=== PATIENT | male | born 1975 | race Two or more races ===

== ENCOUNTER 2017-07-23 19:56 | Emergency (ER) | payer MEDICAID ==
[~2017-07-23] VITALS: Ht 180.3 cm; Wt 83.9 kg
[2017-07-23] MEDS ORDERED: IBUPROFEN600 MG ORAL (20:55)
[2017-07-23] MEDS ORDERED: KEFLEX500 MG ORAL (20:55)
[2017-07-23 21:00] VITALS: BP 115/71
--- NOTE | 2017-07-25 08:20 | Emergency Room Report ---
History of Present Illness General Chief Complaint: Lower Extremity Injury Source: Patient Present Illness HPI Patient presents with discomfort to the lateral right small toe He reports that he has had discomfort over the past several days He had decreased wearing shoes and putting pressure which he felt improved his symptoms however after wearing shoes again he feels discomfort Denies any trauma or fall Denies any other pain to the dorsal foot denies any history of diabetes or other medical conditions pain is worse with touch Allergies: Coded Allergies: No Known Allergies (Unverified , 07/23/17) Patient History Past Medical History: see triage record Pertinent Family History: none Reviewed Nursing Documentation: PMH: Agreed, PSxH: Agreed Nursing Documentation-PMH Past Medical History: No Stated History Review of Systems All Other Systems: negative except mentioned in HPI Physical Exam Vital Signs Date Time Temp Pulse Resp B/P (MAP) Pulse Ox O2 Delivery O2 Flow Rate FiO2 07/23/17 20:04 97.9 66 18 115/71 98 Room Air Sp02 EP Interpretation: reviewed, normal General Appearance: well appearing, no apparent distress Head: normocephalic, atraumatic Eyes: bilateral eye PERRL, bilateral eye EOMI ENT: normal pharynx Neck: full range of motion, supple Respiratory: lungs clear Musculoskeletal: other - Patient shows signs of a callus on the right lateral small toe, mild erythema, no obvious ecchymosis, range of motion intact Neurologic: alert, oriented x3, track repair worker III-XII nml as tested, motor strength/tone normal Skin: other - as above Lymphatic: no adenopathy Medical Decision Making Diagnostic Impression: Primary Impression: cellulitis ER Course Patient appears to have a callus that has become secondarily infected No obvious trauma to consider fracture or emergency imaging Patient will require further podiatry followup and is stable for close reevaluation Last Vital Signs Date Time Temp Pulse Resp B/P (MAP) Pulse Ox O2 Delivery O2 Flow Rate FiO2 07/23/17 21:00 18 115/71 98 07/23/17 20:04 97.9 66 Room Air Status: unchanged Disposition: HOME, SELF-CARE Condition: Stable Scripts Ibuprofen* (MOTRIN*) 600 Mg Tablet 600 MG ORAL Q8H Y for For Pain, #20 TAB 0 Refills Prov: KEVIN DEVLIN DZana 07/23/17 Cephalexin* (KEFLEX*) 500 Mg Capsule 500 MG ORAL Q6H, #28 CAP 0 Refills Prov: KEVIN DEVLIN D.O. 07/23/17 Referrals: OTHER,REFERRING (PCP) Patient Instructions: Cellulitis, [id number] Additional Instructions: Patient is provided with the discharge instructions notified to follow up with primary doctor in the next 2-3 days otherwise return to the er with any worsening symptoms. Please note that this report is being documented using [employer] technology. This can lead to erroneous entry secondary to incorrect interpretation by the dictating instrument. KEVIN DEVLIN D.O. Jul 25, 2017 08:20
== END 2017-07-23 21:30 | disposition home or self-care (01) ==
LOC: EMR 21:24
DX: L03.031 Cellulitis of right toe (principal); L84 Corns and callosities
CPT/HCPCS: 99284

== ENCOUNTER 2017-09-03 20:28 | Emergency (ER) | payer MEDICAID ==
[~2017-09-03] VITALS: Ht 182.9 cm; Wt 83.9 kg
[~2017-09-03 20:28] MED LIST: IBUPROFEN600 MG ORAL; KEFLEX500 MG ORAL
[2017-09-03] MEDS ORDERED: PERCOCET 10-321 EACH ORAL (20:38)
[2017-09-03 20:45] VITALS: BP 134/75
[2017-09-03] MEDS ORDERED: BACTRIM DS TAB1 EAC1 ORAL (21:15)
[2017-09-03] MEDS ORDERED: MUPIROCIN22 GM TOPIC (21:15)
[2017-09-03] MEDS ORDERED: IBUPROFEN600 MG ORAL (21:15)
--- NOTE | 2017-09-03 21:15 | Emergency Room Report ---
History of Present Illness General Chief Complaint: General Complaint Source: Patient Present Illness HPI This is a 41-year-old male with no past medical history. He presents with chief complaint of left upper lip pain ongoing for 2 days. Swollen. Pain is 10 out of 10. Worse with palpation. Starting yesterday. Worse today. No drainage. Denies any other complaint. Allergies: Coded Allergies: No Known Allergies (Unverified , 07/23/17) Patient History Past Medical History: see triage record, old chart reviewed Past Surgical History: none Pertinent Family History: none Social History: Denies: smoking Immunizations: other Reviewed Nursing Documentation: PMH: Agreed, PSxH: Agreed Nursing Documentation-PMH Past Medical History: No Stated History Review of Systems Eye: Denies: eye pain, blurred vision ENT: Denies: ear pain, nose congestion, throat swelling Respiratory: Denies: cough, shortness of breath Cardiovascular: Denies: chest pain, palpitations Gastrointestinal: Denies: abdominal pain, diarrhea, nausea, vomiting Musculoskeletal: Denies: back pain, joint pain Skin: Denies: rash Neurological: Denies: headache, numbness Endocrine: Denies: increased thirst, increased urine Hematologic/Lymphatic: Denies: easy bruising All Other Systems: negative except mentioned in HPI Physical Exam Vital Signs Date Time Temp Pulse Resp B/P (MAP) Pulse Ox O2 Delivery O2 Flow Rate FiO2 09/03/17 20:35 98.6 76 16 134/75 97 Room Air vitals normal Sp02 EP Interpretation: reviewed, normal General Appearance: well appearing, no apparent distress, alert Head: normocephalic, atraumatic Eyes: bilateral eye PERRL, bilateral eye EOMI ENT: hearing grossly normal, normal pharynx, other - Left nares: There is a small 1-2 mm raise red bump. Tender to palpation. Some mild edema to the left middle lip. No fluctuant area. No dental abscess. Neck: full range of motion, supple, no meningismus Respiratory: chest non-tender, lungs clear, normal breath sounds Cardiovascular #1: regular rate, rhythm, no murmur Gastrointestinal: normal bowel sounds, non tender, no mass, no organomegaly, no bruit, non-distended Musculoskeletal: back normal, gait/station normal, normal range of motion Psychiatric: mood/affect normal Skin: warm/dry Medical Decision Making Diagnostic Impression: Primary Impression: Nasal abscess ER Course Is with a small abscess in his nose. I don't see any fluctuant area to I&D. This is only one to 2 mm. We'll treat symptomatically with antibiotics and antibiotic ointment. No deep infection. No dental abscess. Last Vital Signs Date Time Temp Pulse Resp B/P (MAP) Pulse Ox O2 Delivery O2 Flow Rate FiO2 09/03/17 20:35 98.6 76 16 134/75 97 Room Air Status: unchanged Disposition: HOME, SELF-CARE Condition: Stable Scripts Ibuprofen* (MOTRIN*) 600 Mg Tablet 600 MG ORAL THREE TIMES A DAY, #30 TAB 0 Refills Prov: VICKY EDGAR M.D. 09/03/17 Mupirocin* (MUPIROCIN*) 22 Gm Oint...g. 1 APPLIC TOPIC THREE TIMES A DAY, #22 GM Prov: VICKY EDGAR M.D. 09/03/17 Trimethoprim/Sulfamethoxazole 160/800* (BACTRIM DS TABLET*) 1 Each Tablet 1 TAB ORAL Q12H, #14 TAB 0 Refills Prov: VICKY EDGAR M.D. 09/03/17 Additional Instructions: Followup with your Dr. in 2 to 3 days for recheck. Return if symptom worsen. Clean with Hydrogen peroxide. VICKY EDGAR M.D. Sep 03, 2017 21:15
[2017-09-03 21:20] VITALS: BP 134/75
== END 2017-09-03 21:20 | disposition home or self-care (01) ==
LOC: EMR 21:05
DX: J34.0 Abscess, furuncle and carbuncle of nose (principal)
CPT/HCPCS: 99284

== ENCOUNTER 2017-09-06 04:00 | Inpatient (IN) | payer MEDICAID ==
[~2017-09-06] VITALS: Ht 185.4 cm; Wt 86.2 kg
[~2017-09-06 04:00] MED LIST changes: +BACTRIM DS TAB1 EAC1 ORAL; +MUPIROCIN22 GM TOPIC; +PERCOCET 10-321 EACH ORAL
[2017-09-06] MEDS ORDERED: Ketorolac 30mg Inj IV ONE (04:30)
[2017-09-06] MEDS ORDERED: Vancomycin 1 GM in NS 275 ML IV ONE (04:30)
[2017-09-06] MEDS ORDERED: Lidocaine 1% 10mg/ml/Epi 0.005mg/ml 30ml vial INJ ONE (04:30)
[2017-09-06] MEDS ORDERED: Vancomycin 1gm inj IVPB ONE (04:50)
[2017-09-06 05:06] VITALS: BP 136/75
[2017-09-06 05:14] LABS: BASOPHILS % (AUTO) 0.5 % (0.0-2.0); EOSINOPHILS % (AUTO) 0.8 % (0.0-3.0); HEMATOCRIT 40.5 % (42.0-52.0); HEMOGLOBIN 14.5 G/DL (14.2-18.0); LYMPHOCYTES % (AUTO) 14.2 % (20.0-45.0); MEAN CORPUSCULAR VOLUME 85 FL (80-99); MONOCYTES % (AUTO) 9.6 % (1.0-10.0); NEUTROPHILS % (AUTO) 74.9 % (45.0-75.0); PLATELET COUNT 238 K/UL (150-450); RED BLOOD COUNT 4.74 M/UL (4.70-6.10); RED CELL DISTRIBUTION WIDTH 10.2 % (11.6-14.8); WHITE BLOOD COUNT 11.6 K/UL (4.8-10.8)
[2017-09-06 05:34] LABS: ANION GAP 9 mmol/L (5-15); BLOOD UREA NITROGEN 11 mg/dL (7-18); CALCIUM 8.7 MG/DL (8.5-10.1); CARBON DIOXIDE 26 MMOL/L (21-32); CHLORIDE 102 MMOL/L (98-107); CREATININE 1.2 MG/DL (0.55-1.30); POTASSIUM 3.7 MMOL/L (3.5-5.1); SODIUM 137 MMOL/L (136-145)
[2017-09-06 05:50] LABS: ALANINE AMINOTRANSFERASE 97 U/L (12-78); ALBUMIN 3.6 G/DL (3.4-5.0); ALBUMIN/GLOBULIN RATIO 0.9 (1.0-2.7); ALKALINE PHOSPHATASE 118 U/L (46-116); ASPARTATE AMINO TRANSFERASE 67 U/L (15-37); BILIRUBIN,TOTAL 1.4 MG/DL (0.2-1.0)
[2017-09-06 06:08] LABS: BILIRUBIN,DIRECT 0.3 MG/DL (0.0-0.3)
--- NOTE | 2017-09-06 06:16 | Emergency Room Report ---
History of Present Illness General Chief Complaint: Pain Source: Patient (Sulaiman Diaz M.D.) Present Illness HPI Patient re-presents with nasal and upper lip pain. This began 09/01. He was seen 09/03 and was diagnosed with a nasal abscess. He was started on Bactrim and given ibuprofen. He takes oxycontin and percocet for back pain and has used these medicines to help control the pain. It has worsened and the swelling has continued to worsen. The pain is severe and he has trouble eating due to the pain. Some chills. No headache. No fever. No discharge. This began as a pimple on the L side of his nose (inside). He had been scratching the bridge of his nose before. He was treated in June for cellulitis of his foot with Keflex. He states tetanus is UTD. No drug use (snorting). Also denies risk for HIV. No NVD, dysuria, other rashes, chest pain, dyspnea. Chronic back pain. (Sulaiman Diaz M.D.) Allergies: Coded Allergies: No Known Allergies (Unverified , 07/23/17) Patient History Past Medical History: see triage record Social History: Denies: smoking, drug use Social History Narrative in [place], based in [place] Reviewed Nursing Documentation: PMH: Agreed, PSxH: Agreed (Sulaiman Diaz M.D.) Nursing Documentation-PMH Past Medical History: No Stated History (Sulaiman Diaz M.D.) Review of Systems All Other Systems: negative except mentioned in HPI (Sulaiman Diaz M.D.) Physical Exam Vital Signs Date Time Temp Pulse Resp B/P (MAP) Pulse Ox O2 Delivery O2 Flow Rate FiO2 09/06/17 04:07 98.4 94 18 136/75 97 Sp02 EP Interpretation: reviewed, normal General Appearance: no apparent distress, GCS 15, mild distress Head: normocephalic Eyes: bilateral eye normal inspection, bilateral eye PERRL ENT: moist mucus membranes, other - septal swelling with abscess upper lip midline Neck: supple Respiratory: lungs clear, normal breath sounds Cardiovascular #1: regular rate, rhythm Cardiovascular #2: 2+ radial (R) Gastrointestinal: normal inspection, normal bowel sounds, non tender, no mass, non-distended Musculoskeletal: back normal, gait/station normal, normal range of motion Neurologic: alert, oriented x3, grossly normal Psychiatric: anxious - and in pain Skin: normal inspection, warm/dry, other - see ENT (Sulaiman Diaz M.D.) Medical Decision Making Diagnostic Impression: Primary Impression: Nasal abscess Additional Impression: Antibiotic failure ER Course Patient presents with worsening nasal abscess. In facial triangle. Needs eval with labs and will need surgical intervention with I and D. Will give analgesia and also vancomycin. Labs with elevated WBC. CT with 1X0.8 cm abscess midline upper lip. STS and edema. + cervical adenopathy. Patient declines further pain medicine. Work to admit. Presented to Dr. Berman. Unable to get ENT. Presented to [facility]. Awaiting MD discussion. Signed out to Dr. Alfaro. Laboratory Tests Test 09/06/17 05:10 White Blood Count 11.6 K/UL (4.8-10.8) H Red Blood Count 4.74 M/UL (4.70-6.10) Hemoglobin 14.5 G/DL (14.2-18.0) Hematocrit 40.5 % (42.0-52.0) L Mean Corpuscular Volume 85 FL (80-99) Mean Corpuscular Hemoglobin 30.6 PG (27.0-31.0) Mean Corpuscular Hemoglobin Concent 35.9 G/DL (32.0-36.0) Red Cell Distribution Width 10.2 % (11.6-14.8) L Platelet Count 238 K/UL (150-450) Mean Platelet Volume 7.5 FL (6.5-10.1) Neutrophils (%) (Auto) 74.9 % (45.0-75.0) Lymphocytes (%) (Auto) 14.2 % (20.0-45.0) L Monocytes (%) (Auto) 9.6 % (1.0-10.0) Eosinophils (%) (Auto) 0.8 % (0.0-3.0) Basophils (%) (Auto) 0.5 % (0.0-2.0) Sodium Level 137 MMOL/L (136-145) Potassium Level 3.7 MMOL/L (3.5-5.1) Chloride Level 102 MMOL/L (98-107) Carbon Dioxide Level 26 MMOL/L (21-32) Anion Gap 9 mmol/L (5-15) Blood Urea Nitrogen 11 mg/dL (7-18) Creatinine 1.2 MG/DL (0.55-1.30) Estimate Glomerular Filtration Rate > 60 mL/min (>60) Glucose Level 106 MG/DL (74-106) Lactic Acid Level 0.70 mmol/L (0.66-2.22) Calcium Level 8.7 MG/DL (8.5-10.1) Total Bilirubin 1.4 MG/DL (0.2-1.0) H Direct Bilirubin 0.3 MG/DL (0.0-0.3) Aspartate Amino Transferase (AST) 67 U/L (15-37) H Alanine Aminotransferase (ALT) 97 U/L (12-78) H Alkaline Phosphatase 118 U/L (46-116) H Total Protein 7.5 G/DL (6.4-8.2) Albumin 3.6 G/DL (3.4-5.0) Globulin 3.9 g/dL Albumin/Globulin Ratio 0.9 (1.0-2.7) L (Sulaiman Diaz M.D.) ER Course I received signout from Dr. Diaz 41-year-old male, nasal abscess, failed outpatient treatment Received antibiotics Patient still in pain, more pain medication given by me Patient is pending transfer to outside facility for higher level of care with ENT specialty Patient unable to be placed to outside facility due to lack of beds, no ENT specialist accepting patient at this time Signed out to Dr. Cardozo 41 yo M with nasal abscess -pending xfer (Kaci Alfaro M.D.) ER Course The patient endorsed to ne by Dr. Alfaro. I verbally consented the patient for needle aspiration and he agreed. I attempted aspiration with an 18-gauge needle. There is minimal if any drainage. The patient was discussed with Dr. Carson Berman for inpatient management. Dr. Claduine Bourne facial plastics agreed to see the patient for abscess. (Brad Cardozo) CT/MRI/US Diagnostic Results CT/MRI/US Diagnostic Results : Imaging Test Ordered: CT maxilofacial Impression midline nasal abscess (Sulaiman Diaz M.D.) Status: improved (Sulaiman Diaz M.D.) Status: unchanged (Brad Cardozo) Disposition: ADMITTED INPATIENT Condition: Serious Referrals: NOT CHOSEN IPA/,REFERRING (PCP) Sulaiman Diaz M.D. Sep 06, 2017 06:16 Kaci Alfaro M.D. Sep 06, 2017 08:30 Brad Cardozo Sep 06, 2017 15:57
[2017-09-06 07:51] VITALS: BP 120/72
[2017-09-06] MEDS ORDERED: Morphine Sulfate 4mg/ml Inj IVP ONE ×3 (08:15→15:00)
--- NOTE | 2017-09-06 09:28 | Diagnostic Imaging Report ---
Indication: Abscess and infection Technique: Continuous helical transaxial imaging of the maxillofacial structures obtained after intravenous contrast administration. Coronal 2-D reformats were also obtained. Study obtained in a Siemens sensation [address] Total Dose length Product (DLP): 700.[address] Dose Index Volume (CTDIvol): 28.19 mGy Comparison: None Findings: The paranasal sinuses are clear. The orbits are symmetric and appear normal. No abnormal fluid collections are identified. There is soft tissue swelling at the base of the nose just anterior to the superior alveolar ridge. Some enhancement of the soft tissues and suggestion of a small, superficial subcutaneous low-density fluid collection measuring less than 1 cm suspicious for a small abscess. Please correlate clinically. IMPRESSION: Cellulitis and 1 cm abscess involving the soft tissues just anterior to the superior alveolar ridge.
[2017-09-06 10:37] VITALS: BP 131/86
[2017-09-06] MEDS ORDERED: Lidocaine 1% 10mg/ml/EPI 0.01mg/ml 50ml INJ ONE (14:16)
[2017-09-06] MEDS ORDERED: Lidocaine 2% Visc 15ml soln ORAL ONE (14:30)
[2017-09-06] MEDS ORDERED: Lidocaine 1% Plain 30 ml INJ ONE (14:30)
[2017-09-06] MEDS ORDERED: Albuterol/Ipratropium 3ml neb HHN PRN (15:45)
[2017-09-06] MEDS ORDERED: Morphine Sulfate 2mg/ml Inj IVP PRN (15:45)
[2017-09-06] MEDS ORDERED: Miralax 17gm pkt ORAL PRN (15:45)
[2017-09-06] MEDS ORDERED: Nitroglycerin Subl 0.4mg tab SL PRN (16:00)
[2017-09-06 16:39] VITALS: BP 128/85
--- NOTE | 2017-09-06 18:04 | Consultation ---
History of Present Illness General Date patient seen: Sep 06, 2017 Chief Complaint: Pain Present Illness HPI 41 year old male presented to eR with nasal and upper lip pain. He was previously diagnosed with a nasal abscess. He was started on Bactrim and given ibuprofen. The pain is severe and he has trouble eating due to the pain. He was seen by plastic surgeon, who wanted to hold on to any surgery for now and see how pt does on IV abx. Allergies: Coded Allergies: No Known Allergies (Unverified , 07/23/17) Medication History Scheduled Cephalexin* (Keflex*), 500 MG ORAL Q6H Ibuprofen* (Motrin*), 600 MG ORAL THREE TIMES A DAY Mupirocin* (Mupirocin*), 1 APPLIC TOPIC THREE TIMES A DAY Trimethoprim/Sulfamethoxazole 160/800* (Bactrim Ds Tablet*), 1 TAB ORAL Q12H Scheduled PRN Ibuprofen* (Motrin*), 600 MG ORAL Q8H PRN for For Pain Oxycodone Hcl/Acetaminophen 10-325 Mg Tablet (Percocet 10-325 Mg Tablet*), 1 TAB ORAL Q4H PRN for For Pain, (Reported) Patient History Healthcare decision maker N Resuscitation status Advanced Directive on File Physical Exam General Appearance: WD/WN Lines, tubes and drains: peripheral HEENT: normocephalic, anicteric Neck: non-tender, supple Respiratory/Chest: lungs clear, normal breath sounds Cardiovascular/Chest: normal peripheral pulses, normal rate Abdomen: normal bowel sounds, no organomegaly Genitourinary/Rectal: normal genital exam, heme negative stool Last 24 Hour Vital Signs Date Time Temp Pulse Resp B/P (MAP) Pulse Ox O2 Delivery O2 Flow Rate FiO2 09/06/17 17:47 98.2 09/06/17 16:39 98.2 72 18 128/85 100 Room Air 98.2 09/06/17 14:57 98.3 09/06/17 10:37 98.3 70 16 131/86 98 Room Air 98.3 09/06/17 08:49 98.6 09/06/17 07:51 98.6 74 16 120/72 99 Room Air 09/06/17 05:17 98.4 09/06/17 05:06 98.4 94 18 136/75 97 09/06/17 04:07 98.4 94 18 136/75 97 Intake and Output 09/05/17 09/06/17 19:00 07:00 Intake Total 275 ml Output Total 0 ml Balance 275 ml Intake IV Total 275 ml Output Urine Total 0 ml Laboratory Tests Test 09/06/17 05:10 White Blood Count 11.6 K/UL (4.8-10.8) H Red Blood Count 4.74 M/UL (4.70-6.10) Hemoglobin 14.5 G/DL (14.2-18.0) Hematocrit 40.5 % (42.0-52.0) L Mean Corpuscular Volume 85 FL (80-99) Mean Corpuscular Hemoglobin 30.6 PG (27.0-31.0) Mean Corpuscular Hemoglobin Concent 35.9 G/DL (32.0-36.0) Red Cell Distribution Width 10.2 % (11.6-14.8) L Platelet Count 238 K/UL (150-450) Mean Platelet Volume 7.5 FL (6.5-10.1) Neutrophils (%) (Auto) 74.9 % (45.0-75.0) Lymphocytes (%) (Auto) 14.2 % (20.0-45.0) L Monocytes (%) (Auto) 9.6 % (1.0-10.0) Eosinophils (%) (Auto) 0.8 % (0.0-3.0) Basophils (%) (Auto) 0.5 % (0.0-2.0) Sodium Level 137 MMOL/L (136-145) Potassium Level 3.7 MMOL/L (3.5-5.1) Chloride Level 102 MMOL/L (98-107) Carbon Dioxide Level 26 MMOL/L (21-32) Anion Gap 9 mmol/L (5-15) Blood Urea Nitrogen 11 mg/dL (7-18) Creatinine 1.2 MG/DL (0.55-1.30) Estimat Glomerular Filtration Rate > 60 mL/min (>60) Glucose Level 106 MG/DL (74-106) Lactic Acid Level 0.70 mmol/L (0.66-2.22) Calcium Level 8.7 MG/DL (8.5-10.1) Total Bilirubin 1.4 MG/DL (0.2-1.0) H Direct Bilirubin 0.3 MG/DL (0.0-0.3) Aspartate Amino Transf (AST/SGOT) 67 U/L (15-37) H Alanine Aminotransferase (ALT/SGPT) 97 U/L (12-78) H Alkaline Phosphatase 118 U/L (46-116) H Total Protein 7.5 G/DL (6.4-8.2) Albumin 3.6 G/DL (3.4-5.0) Globulin 3.9 g/dL Albumin/Globulin Ratio 0.9 (1.0-2.7) L Height (Feet): 6 Weight (Pounds): 185 Medications Current Medications Medications (Trade) Dose Ordered Sig/Sagar Route PRN Reason Start Time Stop Time Status Last Admin Dose Admin Acetaminophen (Tylenol) 650 mg Q4H PRN ORAL T>100.5 09/06/17 15:45 10/06/17 15:44 Albuterol/ Ipratropium (Albuterol/ Ipratropium) 3 ml Q4H PRN HHN Shortness of Breath 09/06/17 15:45 09/11/17 15:44 Cefepime HCl 2 gm/ Dextrose 110 ml @ 220 mls/hr EVERY 12 HOURS IV 09/06/17 21:00 09/13/17 20:59 UNV Dextrose (Dextrose 50%) STAT PRN IV Hypoglycemia 09/06/17 15:45 10/06/17 15:44 Heparin Sodium (Porcine) (Heparin 5000 units/ml) 5,000 units EVERY 12 HOURS SUBQ 09/06/17 21:00 10/06/17 20:59 Ibuprofen (Advil) 600 mg Q8H PRN ORAL Headache 09/06/17 15:45 10/06/17 15:44 Morphine Sulfate (Morphine Sulfate) 2 mg Q4H PRN IVP Severe Pain (Pain Scale 7-10) 09/06/17 15:45 09/13/17 15:44 09/06/17 17:47 Nitroglycerin (Ntg) 0.4 mg Q5MIN X 3 DOSES PRN SL Prn Chest Pain 09/06/17 16:00 10/06/17 15:59 Ondansetron HCl (Zofran) 4 mg Q6H PRN IVP Nausea & Vomiting 09/06/17 15:45 10/06/17 15:44 09/06/17 17:47 Oxycodone/ Acetaminophen (Percocet 10/325) 1 tab Q4H PRN ORAL Moderate Pain (Pain Scale 4-6) 09/06/17 15:45 09/13/17 15:44 Polyethylene Glycol (Miralax) 17 gm DAILYPRN PRN ORAL Constipation 09/06/17 15:45 10/06/17 15:44 Temazepam (Restoril) 15 mg HSPRN PRN ORAL Insomnia 09/06/17 21:00 09/13/17 20:59 Vancomycin HCl 1 gm/Dextrose 275 ml @ 183.3 mls/ hr Q24H IV 09/07/17 00:30 09/12/17 00:29 UNV Assessment/Plan Problem List: (1) Cellulitis ICD Codes: L03.90 - Cellulitis, unspecified SNOMED: 505816017 (2) Nasal abscess ICD Codes: J34.0 - Abscess, furuncle and carbuncle of nose SNOMED: 5088162 Assessment/Plan iv abx check cultures sugery follow up. dvt prophylaxis SHANNON KAMARA Sep 06, 2017 18:04
[2017-09-06 18:53] VITALS: BP 107/54
[2017-09-06 21:00] VITALS: BP 123/73
[2017-09-06] MEDS: Heparin 5000 units/ml inj SUBQ SCH (21:00)
[2017-09-06] MEDS: Cefepime HCl 2 GM in NS 110 ML IV SCH (21:08)
[2017-09-06] MEDS ORDERED: Morphine Sulfate 4mg/ml Inj IVP PRN (22:15)
[2017-09-06] MEDS: Vancomycin 1 GM in D5W 275 ML IVPB SCH (22:30)
--- NOTE | 2017-09-06 23:45 | Consultation ---
DATE OF CONSULTATION: 09/06/2017 PLASTIC SURGERY OPERATIVE CONSULTATION SERVICE: Plastic and Reconstructive Surgery. CHIEF COMPLAINT: Facial abscess. HISTORY OF PRESENT ILLNESS: The patient is a 41-year-old gentleman who represented to the emergency room at [facility]. He was initially seen on 09/03/2017 with a nasal abscess. He was given Bactrim as well as ibuprofen, and asked to follow up if his symptoms worsen. Over the course of subsequent few days, his symptoms have worsened. He had difficulty swallowing and eating, although he denies headache, fever, or nasal discharge. He does have some chills. He reports that all of his symptoms initially began with some an area of acne on the left side of his nose. PAST MEDICAL HISTORY: None. SOCIAL HISTORY: Denies smoking or drug use. 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 PHYSICAL EXAMINATION: VITAL SIGNS: Temperature 98.4, pulse 94, respiratory rate 18, blood pressure 136/75, and pulse oximetry is 97%. HEENT: Extraocular movements intact. NEUROLOGIC: Cranial nerves II through XII are intact. Significant facial edema in the inferior lip and base of nose areas. Positive erythema along the nasal lobule and lower lateral cartilages. DATA REVIEW: CT scan shows 1 x 0.8 cm abscess of the upper lip with edema. ASSESSMENT AND PLAN: This is a 41-year-old gentleman man with nasal abscess. He would benefit from incision and drainage of his abscesses . Admission to the medical service for IV antibiotics. PLAN: I will continue to follow with you during this inpatient stay. Berry Bourne MD DR: JENNIFER JOB#: [id number] CC:
[2017-09-07] VITALS (7 sets, daily range): BP systolic 104–135; BP diastolic 55–85
[2017-09-07] MEDS: Vancomycin 1 GM in D5W 275 ML IVPB SCH ×3 (05:37→22:22)
[2017-09-07] MEDS: Morphine Sulfate 4mg/ml Inj IVP PRN ×4 (05:42→19:58)
[2017-09-07 07:26] LABS: BASOPHILS % (AUTO) 0.5 % (0.0-2.0); EOSINOPHILS % (AUTO) 0.3 % (0.0-3.0); HEMATOCRIT 39.6 % (42.0-52.0); HEMOGLOBIN 14.3 G/DL (14.2-18.0); LYMPHOCYTES % (AUTO) 15.2 % (20.0-45.0); MEAN CORPUSCULAR VOLUME 86 FL (80-99); MONOCYTES % (AUTO) 9.7 % (1.0-10.0); NEUTROPHILS % (AUTO) 74.3 % (45.0-75.0); PLATELET COUNT 246 K/UL (150-450); RED BLOOD COUNT 4.62 M/UL (4.70-6.10); RED CELL DISTRIBUTION WIDTH 10.5 % (11.6-14.8); WHITE BLOOD COUNT 11.7 K/UL (4.8-10.8)
[2017-09-07 07:46] LABS: ALANINE AMINOTRANSFERASE 68 U/L (12-78); ALBUMIN 3.1 G/DL (3.4-5.0); ALBUMIN/GLOBULIN RATIO 0.7 (1.0-2.7); ALKALINE PHOSPHATASE 112 U/L (46-116); ANION GAP 6 mmol/L (5-15); ASPARTATE AMINO TRANSFERASE 31 U/L (15-37); BILIRUBIN,DIRECT 0.2 MG/DL (0.0-0.3); BILIRUBIN,TOTAL 1.3 MG/DL (0.2-1.0); BLOOD UREA NITROGEN 9 mg/dL (7-18); CALCIUM 8.9 MG/DL (8.5-10.1); CARBON DIOXIDE 27 MMOL/L (21-32); CHLORIDE 100 MMOL/L (98-107); POTASSIUM 3.9 MMOL/L (3.5-5.1); SODIUM 133 MMOL/L (136-145)
[2017-09-07] MEDS: Cefepime HCl 2 GM in NS 110 ML IV SCH (09:05)
[2017-09-07] MEDS: Heparin 5000 units/ml inj SUBQ SCH ×2 (09:07→20:04)
[2017-09-07] MEDS ORDERED: Tubing IV Secondary IV ONE (11:24)
[2017-09-07] MEDS ORDERED: NS 275ml ONE (11:24)
--- NOTE | 2017-09-07 12:56 | Consultation ---
Consult Note Consult Note ID DIC # [id number] SIDNEY DONALDSON M.D. Sep 07, 2017 12:55
--- NOTE | 2017-09-07 13:03 | Pulmonology Progress Note ---
Assessment/Plan Problems: (1) Cellulitis (2) Nasal abscess Assessment/Plan IV abx check cultures f/u plastic surgery recommendations. Subjective ROS Limited/Unobtainable: No Interval Events: feeling better Constitutional: Reports: no symptoms HEENT: Repors: no symptoms Allergies: Coded Allergies: No Known Allergies (Unverified , 07/23/17) Objective Last 24 Hour Vital Signs Date Time Temp Pulse Resp B/P (MAP) Pulse Ox O2 Delivery O2 Flow Rate FiO2 09/07/17 12:00 98.1 77 20 115/70 97 Room Air 09/07/17 09:00 99.7 77 19 132/75 95 09/07/17 08:00 99.7 72 20 135/72 96 Room Air 09/07/17 05:00 98.1 77 20 113/72 100 09/07/17 00:00 100.0 67 22 104/55 94 09/06/17 21:00 100.0 57 21 123/73 98 09/06/17 18:53 99.9 78 20 107/54 98 09/06/17 18:10 98.2 72 18 128/85 100 Room Air 208.8 09/06/17 17:47 98.2 09/06/17 16:39 98.2 72 18 128/85 100 Room Air 98.2 09/06/17 14:57 98.3 Intake and Output 09/06/17 09/07/17 19:00 07:00 Intake Total 100 ml 568.3 ml Balance 100 ml 568.3 ml Intake Oral 100 ml IV Total 568.3 ml # Voids 2 Objective Lines, tubes and drains: peripheral HEENT: normocephalic, atraumatic, redness around bottom of nose Neck: non-tender, supple Respiratory/Chest: chest wall non-tender, normal breath sounds, no respiratory distress Breasts: no masses Cardiovascular/Chest: normal peripheral pulses Abdomen: normal bowel sounds Genitourinary/Rectal: normal genital exam Extremities: normal range of motion, non-tender Skin Exam: cyanotic Neurologic: environmental manager II-XII grossly normal Laboratory Tests 09/07/17 06:50: White Blood Count 11.7H, Red Blood Count 4.62L, Hemoglobin 14.3, Hematocrit 39.6L, Mean Corpuscular Volume 86, Mean Corpuscular Hemoglobin 30.9, Mean Corpuscular Hemoglobin Concent 36.1H, Red Cell Distribution Width 10.5L, Platelet Count 246, Mean Platelet Volume 7.3, Neutrophils (%) (Auto) 74.3, Lymphocytes (%) (Auto) 15.2L, Monocytes (%) (Auto) 9.7, Eosinophils (%) (Auto) 0.3, Basophils (%) (Auto) 0.5, Sodium Level 133L, Potassium Level 3.9, Chloride Level 100, Carbon Dioxide Level 27, Anion Gap 6, Blood Urea Nitrogen 9, Creatinine 1.0, Estimat Glomerular Filtration Rate > 60, Glucose Level 132H, Calcium Level 8.9, Total Bilirubin 1.3H, Direct Bilirubin 0.2, Aspartate Amino Transf (AST/SGOT) 31, Alanine Aminotransferase (ALT/SGPT) 68, Alkaline Phosphatase 112, Total Protein 7.4, Albumin 3.1L, Globulin 4.3, Albumin/ Globulin Ratio 0.7L Current Medications Medications (Trade) Dose Ordered Sig/Sagar Route PRN Reason Start Time Stop Time Status Last Admin Dose Admin Acetaminophen (Tylenol) 650 mg Q4H PRN ORAL T>100.5 09/06/17 15:45 10/06/17 15:44 Albuterol/ Ipratropium (Albuterol/ Ipratropium) 3 ml Q4H PRN HHN Shortness of Breath 09/06/17 15:45 09/11/17 15:44 Dextrose (Dextrose 50%) STAT PRN IV Hypoglycemia 09/06/17 15:45 10/06/17 15:44 Heparin Sodium (Porcine) (Heparin 5000 units/ml) 5,000 units EVERY 12 HOURS SUBQ 09/06/17 21:00 10/06/17 20:59 09/07/17 09:07 Ibuprofen (Advil) 600 mg Q8H PRN ORAL Headache 09/06/17 15:45 10/06/17 15:44 Morphine Sulfate (Morphine Sulfate) 4 mg Q2H PRN IVP Severe Pain (Pain Scale 7-10) 09/06/17 23:45 09/13/17 23:44 09/07/17 09:06 Nitroglycerin (Ntg) 0.4 mg Q5MIN X 3 DOSES PRN SL Prn Chest Pain 09/06/17 16:00 10/06/17 15:59 Ondansetron HCl (Zofran) 4 mg Q6H PRN IVP Nausea & Vomiting 09/06/17 15:45 10/06/17 15:44 09/06/17 17:47 Oxycodone/ Acetaminophen (Percocet 10/325) 1 tab Q4H PRN ORAL Moderate Pain (Pain Scale 4-6) 09/06/17 15:45 09/13/17 15:44 Polyethylene Glycol (Miralax) 17 gm DAILYPRN PRN ORAL Constipation 09/06/17 15:45 10/06/17 15:44 Temazepam (Restoril) 15 mg HSPRN PRN ORAL Insomnia 09/06/17 21:00 09/13/17 20:59 Vancomycin HCl 1 gm/Dextrose 275 ml @ 183.3 mls/ hr Q8HR IVPB 09/06/17 22:00 09/11/17 21:59 09/07/17 05:37 SHANNON KAMARA Sep 07, 2017 13:03
--- NOTE | 2017-09-07 21:00 | Consultation ---
DATE OF CONSULTATION: 09/07/2017 INFECTIOUS DISEASES CONSULTATION CONSULTING PHYSICIAN: Meir Everett M.D. REFERRING PHYSICIAN: Taylor Lubin M.D. REASON FOR CONSULTATION: Evaluation of the patient for facial cellulitis, nasal abscess, and antibiotic management. HISTORY OF PRESENT ILLNESS: The patient is a 41-year-old male with no other past medical history who developed a small bump on the left nostril that progressively got worse. It got more painful with erythema of the nose and area. The patient was seen in the emergency room a few days ago and was prescribed Bactrim, however, the patient's condition progressed and he came to the hospital. The patient was started on antibiotics. Infectious Diseases consultation has been requested for further evaluation of patient's antibiotic management. PAST MEDICAL HISTORY: None. MEDICATIONS: Vancomycin and cefepime. ALLERGIES: No known drug allergies. SOCIAL HISTORY: No alcohol, drug abuse, or smoking. FAMILY HISTORY: Not contributing. REVIEW OF SYSTEMS: HEENT: No recent change in vision or hearing. PULMONARY: No cough or shortness of breath. CARDIOVASCULAR: No chest pain or palpitation. GASTROINTESTINAL/ABDOMEN: No nausea or vomiting. GENITOURINARY: No dysuria. MUSCULOSKELETAL: No pain in extremity. PHYSICAL EXAMINATION: VITAL SIGNS: Temperature 98 degrees, blood pressure 116/70, pulse 77, and respiratory rate 18. HEENT: No pale conjunctivae. No icterus. The patient has a small abscess on the left nostril with a small amount of purulent discharge. The patient has erythema of the tip of the nose. NECK: No lymphadenopathy. CHEST: Clear. HEART: S1 and S2. ABDOMEN: Soft and nontender. EXTREMITIES: No cyanosis at this time. NEUROLOGIC: Awake and alert. LABORATORY AND DIAGNOSTIC DATA: White blood cells 11, hemoglobin 14, and platelets 246. BUN 9 and creatinine 1. ALT and AST unremarkable. Maxillofacial CT shows a cm abscess in the soft tissues just anterior to superior alveolar ridge. No evidence of sinusitis. Doppler of lower extremity, no evidence of DVT. ASSESSMENT: The patient is a 41-year-old male with left nostril abscess, mostly due to Staphylococcus aureus, rule out methicillin-resistant Staphylococcus aureus, and facial cellulitis. PLAN: 1. We will continue the patient on IV vancomycin. 2. Monitor CBC. 3. Monitor BMP. 4. Monitor cultures (nares was sent personally). 5. Based on the patient's clinical course and laboratories and cultures, we will do further recommendation. Thank you, Dr. Lubin, for allowing me to participate in the care of this patient. I will follow the patient with you during this hospitalization. Luis Eduardo Everett M.D. DR: KIARA JOB#: [id number] CC:
--- NOTE | 2017-09-07 22:00 | History and Physical Report ---
DATE OF ADMISSION: 09/06/2017 APPROXIMATE TIME: 3 p.m. CONSULTANTS: 1. Varinder Felix M.D. 2. Dr. Hernandez. 3. Taylor Lubin M.D. 4. Dr. Bourne. CHIEF COMPLAINT: Nasal abscess. BRIEF HISTORY: The patient is a 41-year-old male who lives at home a week ago, had a pinpoint in the middle nose septal area, apparently clear a little bit. The patient was given Bactrim, taken it for 5 days without improvement. The patient came to [facility], diagnosed with above, admitted to medical floor for further treatment. Currently, calm in bed, slight nasal pain, no complaints otherwise. REVIEW OF SYSTEMS: No chest pain. No shortness of breath. No nausea, vomiting, diarrhea. PAST MEDICAL HISTORY: Nothing. PAST SURGICAL HISTORY: None. MEDICATIONS: Include morphine, vancomycin, heparin, temazepam, cefepime, nitroglycerin, ibuprofen, Percocet, Zofran, MiraLAX, Tylenol, albuterol. ALLERGIES: Denies. SOCIAL HISTORY: No smoking, no alcohol, no intravenous drug abuse. FAMILY HISTORY: Noncontributory. PHYSICAL EXAMINATION: GENERAL: Calm in bed, oriented x3, no acute distress. VITAL SIGNS: Temperature 98, pulse 77, respirations 20, and blood pressure 115/70. HEENT: Nasal area with middle nasal septal area slightly swollen red about 0.5 cm x 0.5 cm. No drainage noted. No lymphadenopathy noted. No oral lesions noted CARDIOVASCULAR: No murmur. LUNGS: Distant and clear. ABDOMEN: Bowel sounds positive. Nontender and nondistended. EXTREMITIES: No cyanosis, clubbing, or edema. NEUROLOGIC: The patient moves all extremities, slightly weak. LABORATORY AND DIAGNOSTIC DATA: White count 11.7, hemoglobin and hematocrit 14 and 39, platelets 246. BMP shows sodium 133, glucose 132. Calcium 11.3. Albumin 3.1. ASSESSMENT: Nasal abscess. PLAN: 1. Continue premedications. 2. Wound care. 3. Antibiotics per Infectious Disease. 4. CBC and BMP in the morning. 5. Dr. Bourne, Dr. Felix, Dr. Hernandez, Dr. Lubin to consult. 6. We will continue to follow the patient. Carson Berman D.O. DR: Edgard JOB#: [id number] CC:
--- NOTE | 2017-09-07 23:45 | Progress Note ---
DATE: 09/07/2017 SERVICE: PLASTIC AND RECONSTRUCTIVE SURGERY. SUBJECTIVE: The patient did well overnight. He continued to receive IV antibiotics per the primary care team. He continues to complain of some pain that evening. OBJECTIVE: GENERAL: Alert, not in distress, cooperative. Positive purulent drainage from nasal base. Positive nasal drainage from inner mucosal region. Improved nasal erythema and edema. Improved upper edema and erythema. ASSESSMENT AND PLAN: In summary, the patient is a 41-year-old gentleman with nasal base abscess. He appears to be improving as his abscess continues to autodrain. RECOMMENDATIONS: 1. Warm facial soak four times per day in bathroom/bath tub. 2. Continue IV antibiotics. 3. Okay for discharge home tomorrow or day after tomorrow based on continued improvement. Berry Bourne MD DR: Bela JOB#: [id number] CC:
[2017-09-08] VITALS (7 sets, daily range): BP systolic 101–114; BP diastolic 52–75
[2017-09-08] MEDS: Morphine Sulfate 4mg/ml Inj IVP PRN ×2 (00:41→05:32)
[2017-09-08] MEDS: Vancomycin 1 GM in D5W 275 ML IVPB SCH ×3 (05:28→21:15)
[2017-09-08 07:35] LABS: ALANINE AMINOTRANSFERASE 87 U/L (12-78); ALBUMIN 3.2 G/DL (3.4-5.0); ALBUMIN/GLOBULIN RATIO 0.7 (1.0-2.7); ALKALINE PHOSPHATASE 118 U/L (46-116); ANION GAP 5 mmol/L (5-15); ASPARTATE AMINO TRANSFERASE 45 U/L (15-37); BILIRUBIN,TOTAL 0.8 MG/DL (0.2-1.0); BLOOD UREA NITROGEN 11 mg/dL (7-18); CALCIUM 9.2 MG/DL (8.5-10.1); CARBON DIOXIDE 31 MMOL/L (21-32); CHLORIDE 103 MMOL/L (98-107); CREATININE 1.1 MG/DL (0.55-1.30); PHOSPHORUS 3.4 MG/DL (2.5-4.9); POTASSIUM 4.6 MMOL/L (3.5-5.1); SODIUM 139 MMOL/L (136-145)
[2017-09-08 08:05] LABS: BASOPHILS % (AUTO) 0.9 % (0.0-2.0); HEMATOCRIT 43.3 % (42.0-52.0); HEMOGLOBIN 15.1 G/DL (14.2-18.0); LYMPHOCYTES % (AUTO) 37.5 % (20.0-45.0); MEAN CORPUSCULAR VOLUME 87 FL (80-99); MONOCYTES % (AUTO) 10.6 % (1.0-10.0); NEUTROPHILS % (AUTO) 48.9 % (45.0-75.0); PLATELET COUNT 261 K/UL (150-450); RED BLOOD COUNT 4.95 M/UL (4.70-6.10); RED CELL DISTRIBUTION WIDTH 10.5 % (11.6-14.8); WHITE BLOOD COUNT 7.8 K/UL (4.8-10.8)
[2017-09-08] MEDS: Heparin 5000 units/ml inj SUBQ SCH ×2 (08:19→21:13)
--- NOTE | 2017-09-08 12:10 | General Progress Note ---
Assessment/Plan Problem List: (1) Cellulitis ICD Codes: L03.90 - Cellulitis, unspecified SNOMED: 709011180 (2) Nasal abscess ICD Codes: J34.0 - Abscess, furuncle and carbuncle of nose SNOMED: 2903512 Status: stable, progressing, tolerating diet Assessment/Plan abx ent plastic f/u cbc bmp am Subjective Constitutional: Reports: weakness Allergies: Coded Allergies: No Known Allergies (Unverified , 07/23/17) All Systems: reviewed and negative except above Subjective sl nasal pain Objective Last 24 Hour Vital Signs Date Time Temp Pulse Resp B/P (MAP) Pulse Ox O2 Delivery O2 Flow Rate FiO2 09/08/17 11:26 97.9 62 19 101/66 97 09/08/17 08:18 98.4 62 19 102/52 98 09/08/17 04:00 98.3 65 19 110/66 99 Room Air 09/08/17 00:00 98.2 67 18 113/60 99 Room Air 09/07/17 20:00 98.6 86 19 127/85 98 Room Air 09/07/17 16:00 98.5 85 20 112/69 98 Room Air Intake and Output 09/07/17 09/08/17 19:00 07:00 Intake Total 958.3 ml Balance 958.3 ml Intake Oral 500 ml IV Total 458.3 ml # Voids 2 3 # Bowel Movements 1 Laboratory Tests 09/08/17 05:50: White Blood Count 7.8, Red Blood Count 4.95, Hemoglobin 15.1, Hematocrit 43.3, Mean Corpuscular Volume 87, Mean Corpuscular Hemoglobin 30.4, Mean Corpuscular Hemoglobin Concent 34.8, Red Cell Distribution Width 10.5L, Platelet Count 261, Mean Platelet Volume 7.1, Neutrophils (%) (Auto) 48.9, Lymphocytes (%) (Auto) 37.5, Monocytes (%) (Auto) 10.6H, Eosinophils (%) (Auto) 2.0, Basophils (%) ( Auto) 0.9, Sodium Level 139, Potassium Level 4.6, Chloride Level 103, Carbon Dioxide Level 31, Anion Gap 5, Blood Urea Nitrogen 11, Creatinine 1.1, Estimat Glomerular Filtration Rate > 60, Glucose Level 114H, Calcium Level 9.2, Phosphorus Level 3.4, Magnesium Level 2.3, Total Bilirubin 0.8, Aspartate Amino Transf (AST/SGOT) 45H, Alanine Aminotransferase (ALT/SGPT) 87H, Alkaline Phosphatase 118H, Total Protein 7.7, Albumin 3.2L, Globulin 4.5, Albumin/ Globulin Ratio 0.7L Height (Feet): 6 Height (Inches): 1.00 Weight (Pounds): 190 General Appearance: alert EENT: normal ENT inspection Neck: normal alignment Cardiovascular: normal peripheral pulses, normal rate, regular rhythm Respiratory/Chest: chest wall non-tender, lungs clear, normal breath sounds Abdomen: normal bowel sounds, non tender, soft Extremities: normal inspection Edema: no edema noted Arm (L), no edema noted Arm (R), no edema noted Leg (L), no edema noted Leg (R), no edema noted Pedal (L), no edema noted Pedal (R), no edema noted Generalized Neurologic: responsive, motor weakness Skin: normal pigmentation, warm/dry Objective sl nasal tip septum redness and swelling CAROLYNN BENSON Sep 08, 2017 12:10
--- NOTE | 2017-09-08 12:33 | Infectious Diseases Prog Note ---
Assessment/Plan Assessment/Plan A; Nasal abscess Facial cellulitis P; Continue IV Vancomycin will f/u cultures Subjective ROS Limited/Unobtainable: No HEENT: Reports: no symptoms Respiratory: Reports: no symptoms Cardiovascular: Reports: no symptoms Gastrointestinal/Abdominal: Reports: no symptoms Skin: Reports: other - draining from base of nose Allergies: Coded Allergies: No Known Allergies (Unverified , 07/23/17) Objective Vital Signs Last 24 Hour Vital Signs Date Time Temp Pulse Resp B/P (MAP) Pulse Ox O2 Delivery O2 Flow Rate FiO2 09/08/17 11:26 97.9 62 19 101/66 97 09/08/17 08:18 98.4 62 19 102/52 98 09/08/17 04:00 98.3 65 19 110/66 99 Room Air 09/08/17 00:00 98.2 67 18 113/60 99 Room Air 09/07/17 20:00 98.6 86 19 127/85 98 Room Air 09/07/17 16:00 98.5 85 20 112/69 98 Room Air Height (Feet): 6 Height (Inches): 1.00 Weight (Pounds): 190 General Appearance: no acute distress HEENT: mucous membranes moist, other - nasal base erythema, small opeing of abscess in left nostril , oral ulcers Abdomen: soft, non tender Extremities: no edema Neurologic/Psychiatric: alert, oriented x 3, responsive Microbiology Date/Time Source Procedure Growth Status 09/07/17 11:10 Nose Gram Stain Pending Resulted 09/07/17 11:10 Wound Culture - Preliminary Staphylococcus Aureus Resulted Laboratory Tests Test 09/08/17 05:50 White Blood Count 7.8 K/UL (4.8-10.8) Red Blood Count 4.95 M/UL (4.70-6.10) Hemoglobin 15.1 G/DL (14.2-18.0) Hematocrit 43.3 % (42.0-52.0) Mean Corpuscular Volume 87 FL (80-99) Mean Corpuscular Hemoglobin 30.4 PG (27.0-31.0) Mean Corpuscular Hemoglobin Concent 34.8 G/DL (32.0-36.0) Red Cell Distribution Width 10.5 % (11.6-14.8) L Platelet Count 261 K/UL (150-450) Mean Platelet Volume 7.1 FL (6.5-10.1) Neutrophils (%) (Auto) 48.9 % (45.0-75.0) Lymphocytes (%) (Auto) 37.5 % (20.0-45.0) Monocytes (%) (Auto) 10.6 % (1.0-10.0) H Eosinophils (%) (Auto) 2.0 % (0.0-3.0) Basophils (%) (Auto) 0.9 % (0.0-2.0) Sodium Level 139 MMOL/L (136-145) Potassium Level 4.6 MMOL/L (3.5-5.1) Chloride Level 103 MMOL/L (98-107) Carbon Dioxide Level 31 MMOL/L (21-32) Anion Gap 5 mmol/L (5-15) Blood Urea Nitrogen 11 mg/dL (7-18) Creatinine 1.1 MG/DL (0.55-1.30) Estimat Glomerular Filtration Rate > 60 mL/min (>60) Glucose Level 114 MG/DL (74-106) H Calcium Level 9.2 MG/DL (8.5-10.1) Phosphorus Level 3.4 MG/DL (2.5-4.9) Magnesium Level 2.3 MG/DL (1.5-2.4) Total Bilirubin 0.8 MG/DL (0.2-1.0) Aspartate Amino Transf (AST/SGOT) 45 U/L (15-37) H Alanine Aminotransferase (ALT/SGPT) 87 U/L (12-78) H Alkaline Phosphatase 118 U/L (46-116) H Total Protein 7.7 G/DL (6.4-8.2) Albumin 3.2 G/DL (3.4-5.0) L Globulin 4.5 g/dL Albumin/Globulin Ratio 0.7 (1.0-2.7) L Current Medications Medications (Trade) Dose Ordered Sig/Sagar Route PRN Reason Start Time Stop Time Status Last Admin Dose Admin Acetaminophen (Tylenol) 650 mg Q4H PRN ORAL T>100.5 09/06/17 15:45 10/06/17 15:44 Albuterol/ Ipratropium (Albuterol/ Ipratropium) 3 ml Q4H PRN HHN Shortness of Breath 09/06/17 15:45 09/11/17 15:44 Dextrose (Dextrose 50%) STAT PRN IV Hypoglycemia 09/06/17 15:45 10/06/17 15:44 Heparin Sodium (Porcine) (Heparin 5000 units/ml) 5,000 units EVERY 12 HOURS SUBQ 09/06/17 21:00 10/06/17 20:59 09/07/17 09:07 Ibuprofen (Advil) 600 mg Q8H PRN ORAL Headache 09/06/17 15:45 10/06/17 15:44 Morphine Sulfate (Morphine Sulfate) 4 mg Q2H PRN IVP Severe Pain (Pain Scale 7-10) 09/06/17 23:45 09/13/17 23:44 09/08/17 05:32 Nitroglycerin (Ntg) 0.4 mg Q5MIN X 3 DOSES PRN SL Prn Chest Pain 09/06/17 16:00 10/06/17 15:59 Ondansetron HCl (Zofran) 4 mg Q6H PRN IVP Nausea & Vomiting 09/06/17 15:45 10/06/17 15:44 09/06/17 17:47 Oxycodone/ Acetaminophen (Percocet 10/325) 1 tab Q4H PRN ORAL Moderate Pain (Pain Scale 4-6) 09/06/17 15:45 09/13/17 15:44 Polyethylene Glycol (Miralax) 17 gm DAILYPRN PRN ORAL Constipation 09/06/17 15:45 10/06/17 15:44 Temazepam (Restoril) 15 mg HSPRN PRN ORAL Insomnia 09/06/17 21:00 09/13/17 20:59 Vancomycin HCl 1 gm/Dextrose 275 ml @ 183.3 mls/ hr Q8HR IVPB 09/06/17 22:00 09/11/17 21:59 09/08/17 05:28 DAMIEN POTTER Sep 08, 2017 12:33
--- NOTE | 2017-09-08 14:31 | Pulmonology Progress Note ---
Assessment/Plan Problems: (1) Cellulitis (2) Nasal abscess Assessment/Plan IV abx check cultures f/u plastic surgery recommendations. wbc decreasing pain management Subjective ROS Limited/Unobtainable: No Constitutional: Reports: no symptoms HEENT: Repors: no symptoms Respiratory: Reports: no symptoms Allergies: Coded Allergies: No Known Allergies (Unverified , 07/23/17) Objective Last 24 Hour Vital Signs Date Time Temp Pulse Resp B/P (MAP) Pulse Ox O2 Delivery O2 Flow Rate FiO2 09/08/17 11:26 97.9 62 19 101/66 97 09/08/17 08:18 98.4 62 19 102/52 98 09/08/17 04:00 98.3 65 19 110/66 99 Room Air 09/08/17 00:00 98.2 67 18 113/60 99 Room Air 09/07/17 20:00 98.6 86 19 127/85 98 Room Air 09/07/17 16:00 98.5 85 20 112/69 98 Room Air Intake and Output 09/07/17 09/08/17 19:00 07:00 Intake Total 958.3 ml Balance 958.3 ml Intake Oral 500 ml IV Total 458.3 ml # Voids 2 3 # Bowel Movements 1 Objective Lines, tubes and drains: peripheral HEENT: normocephalic, atraumatic, redness around bottom of nose Neck: non-tender, supple Respiratory/Chest: chest wall non-tender, normal breath sounds, no respiratory distress Breasts: no masses Cardiovascular/Chest: normal peripheral pulses Abdomen: normal bowel sounds Genitourinary/Rectal: normal genital exam Extremities: normal range of motion, non-tender Skin Exam: cyanotic 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 Microbiology Date/Time Source Procedure Growth Status 09/07/17 11:10 Nose Gram Stain Pending Resulted 09/07/17 11:10 Wound Culture - Preliminary Staphylococcus Aureus Resulted Laboratory Tests 09/08/17 05:50: White Blood Count 7.8, Red Blood Count 4.95, Hemoglobin 15.1, Hematocrit 43.3, Mean Corpuscular Volume 87, Mean Corpuscular Hemoglobin 30.4, Mean Corpuscular Hemoglobin Concent 34.8, Red Cell Distribution Width 10.5L, Platelet Count 261, Mean Platelet Volume 7.1, Neutrophils (%) (Auto) 48.9, Lymphocytes (%) (Auto) 37.5, Monocytes (%) (Auto) 10.6H, Eosinophils (%) (Auto) 2.0, Basophils (%) ( Auto) 0.9, Sodium Level 139, Potassium Level 4.6, Chloride Level 103, Carbon Dioxide Level 31, Anion Gap 5, Blood Urea Nitrogen 11, Creatinine 1.1, Estimat Glomerular Filtration Rate > 60, Glucose Level 114H, Calcium Level 9.2, Phosphorus Level 3.4, Magnesium Level 2.3, Total Bilirubin 0.8, Aspartate Amino Transf (AST/SGOT) 45H, Alanine Aminotransferase (ALT/SGPT) 87H, Alkaline Phosphatase 118H, Total Protein 7.7, Albumin 3.2L, Globulin 4.5, Albumin/ Globulin Ratio 0.7L 09/08/17 13:20: Vancomycin Level Trough [Pending] Current Medications Medications (Trade) Dose Ordered Sig/Sagar Route PRN Reason Start Time Stop Time Status Last Admin Dose Admin Acetaminophen (Tylenol) 650 mg Q4H PRN ORAL T>100.5 09/06/17 15:45 10/06/17 15:44 Albuterol/ Ipratropium (Albuterol/ Ipratropium) 3 ml Q4H PRN HHN Shortness of Breath 09/06/17 15:45 09/11/17 15:44 Dextrose (Dextrose 50%) STAT PRN IV Hypoglycemia 09/06/17 15:45 10/06/17 15:44 Heparin Sodium (Porcine) (Heparin 5000 units/ml) 5,000 units EVERY 12 HOURS SUBQ 09/06/17 21:00 10/06/17 20:59 09/07/17 09:07 Ibuprofen (Advil) 600 mg Q8H PRN ORAL Headache 09/06/17 15:45 10/06/17 15:44 Morphine Sulfate (Morphine Sulfate) 4 mg Q2H PRN IVP Severe Pain (Pain Scale 7-10) 09/06/17 23:45 09/13/17 23:44 09/08/17 05:32 Nitroglycerin (Ntg) 0.4 mg Q5MIN X 3 DOSES PRN SL Prn Chest Pain 09/06/17 16:00 10/06/17 15:59 Ondansetron HCl (Zofran) 4 mg Q6H PRN IVP Nausea & Vomiting 09/06/17 15:45 10/06/17 15:44 09/06/17 17:47 Oxycodone/ Acetaminophen (Percocet 10/325) 1 tab Q4H PRN ORAL Moderate Pain (Pain Scale 4-6) 09/06/17 15:45 09/13/17 15:44 Polyethylene Glycol (Miralax) 17 gm DAILYPRN PRN ORAL Constipation 09/06/17 15:45 10/06/17 15:44 Temazepam (Restoril) 15 mg HSPRN PRN ORAL Insomnia 09/06/17 21:00 09/13/17 20:59 Vancomycin HCl 1 gm/Dextrose 275 ml @ 183.3 mls/ hr Q8HR IVPB 09/06/17 22:00 09/11/17 21:59 09/08/17 05:28 SHANNON KAMARA Sep 08, 2017 14:31
[2017-09-09 00:19] VITALS: BP 110/68
[2017-09-09] MEDS: Morphine Sulfate 4mg/ml Inj IVP PRN (00:40)
[2017-09-09 04:00] VITALS: BP 120/88
[2017-09-09] MEDS: Vancomycin 1 GM in D5W 275 ML IVPB SCH ×2 (05:35→14:18)
[2017-09-09 07:32] LABS: EOSINOPHILS % (AUTO) 3.4 % (0.0-3.0); HEMATOCRIT 38.4 % (42.0-52.0); HEMOGLOBIN 13.7 G/DL (14.2-18.0); LYMPHOCYTES % (AUTO) 34.5 % (20.0-45.0); MEAN CORPUSCULAR VOLUME 87 FL (80-99); MONOCYTES % (AUTO) 8.8 % (1.0-10.0); NEUTROPHILS % (AUTO) 52.3 % (45.0-75.0); PLATELET COUNT 236 K/UL (150-450); RED BLOOD COUNT 4.43 M/UL (4.70-6.10); RED CELL DISTRIBUTION WIDTH 10.7 % (11.6-14.8)
[2017-09-09 07:46] LABS: ANION GAP 5 mmol/L (5-15); BLOOD UREA NITROGEN 11 mg/dL (7-18); CALCIUM 8.8 MG/DL (8.5-10.1); CARBON DIOXIDE 29 MMOL/L (21-32); CHLORIDE 106 MMOL/L (98-107); CREATININE 0.9 MG/DL (0.55-1.30); POTASSIUM 4.3 MMOL/L (3.5-5.1); SODIUM 139 MMOL/L (136-145)
[2017-09-09 08:00] VITALS: BP 89/69
--- NOTE | 2017-09-09 08:08 | Pulmonology Progress Note ---
Assessment/Plan Assessment/Plan ASSESSMENT Nasal base abscess facial cellulitis Elevated LFT PLAN OF CARE MS floor CT maxillofacial + cellulitis and 1 cm abscess plastic surgery seen and evaluated abscess auto-draining warm facial soaks qid IV abx ID follows wound cx + Staph aureus surgeon cleared for dc pain management DVT prophylaxis Bowel regimen Venous Duplex BLE negative monitor LFT, trending down can be probably dc today with po abx as per ID case discussed and evaluated by supervising physician Subjective Allergies: Coded Allergies: No Known Allergies (Unverified , 07/23/17) Subjective afebrile, no leukocytosis feeling better Objective Last 24 Hour Vital Signs Date Time Temp Pulse Resp B/P (MAP) Pulse Ox O2 Delivery O2 Flow Rate FiO2 09/09/17 04:00 97.6 64 19 120/88 99 Room Air 09/09/17 04:00 99 Room Air 09/09/17 00:19 98 Room Air 09/09/17 00:19 97.7 60 18 110/68 98 Room Air 09/08/17 20:00 99 Room Air 09/08/17 20:00 97.9 67 18 113/64 99 Room Air 09/08/17 18:21 98.2 73 19 114/75 Room Air 09/08/17 16:45 98.2 73 19 114/75 Room Air 09/08/17 11:26 97.9 62 19 101/66 97 09/08/17 08:18 98.4 62 19 102/52 98 Intake and Output 09/08/17 09/09/17 19:00 07:00 Intake Total 1479.9 ml Balance 1479.9 ml Intake Oral 930 ml IV Total 549.9 ml # Voids 5 1 HEENT: normocephalic, atraumatic, anicteric, mucous membranes moist, other - small abscess left nostril, no drainage, erythema on tip of the nsoe, decreasing facial edema Respiratory/Chest: lungs clear, no respiratory distress Cardiovascular: normal rate, no gallop/murmur Abdomen: normal bowel sounds, soft, non tender, non distended Extremities: no edema, pedal pulses normal Neurologic/Psychiatric: no motor/sensory deficits, alert, oriented x 3, responsive Musculoskeletal: normal muscle bulk Microbiology Date/Time Source Procedure Growth Status 09/07/17 11:10 Nose Gram Stain Pending Resulted 09/07/17 11:10 Wound Culture - Preliminary Staphylococcus Aureus Resulted Laboratory Tests 09/08/17 13:20: Vancomycin Level Trough 12.3H 09/09/17 06:20: White Blood Count 7.0, Red Blood Count 4.43L, Hemoglobin 13.7L, Hematocrit 38.4L , Mean Corpuscular Volume 87, Mean Corpuscular Hemoglobin 31.0, Mean Corpuscular Hemoglobin Concent 35.7, Red Cell Distribution Width 10.7L, Platelet Count 236, Mean Platelet Volume 7.1, Neutrophils (%) (Auto) 52.3, Lymphocytes (%) (Auto) 34.5, Monocytes (%) (Auto) 8.8, Eosinophils (%) (Auto) 3.4H, Basophils (%) (Auto) 1.0, Sodium Level 139, Potassium Level 4.3, Chloride Level 106, Carbon Dioxide Level 29, Anion Gap 5, Blood Urea Nitrogen 11, Creatinine 0.9, Estimat Glomerular Filtration Rate > 60, Glucose Level 110H, Calcium Level 8.8 Current Medications Medications (Trade) Dose Ordered Sig/Sagar Route PRN Reason Start Time Stop Time Status Last Admin Dose Admin Acetaminophen (Tylenol) 650 mg Q4H PRN ORAL T>100.5 09/06/17 15:45 10/06/17 15:44 Albuterol/ Ipratropium (Albuterol/ Ipratropium) 3 ml Q4H PRN HHN Shortness of Breath 09/06/17 15:45 09/11/17 15:44 Dextrose (Dextrose 50%) STAT PRN IV Hypoglycemia 09/06/17 15:45 10/06/17 15:44 Heparin Sodium (Porcine) (Heparin 5000 units/ml) 5,000 units EVERY 12 HOURS SUBQ 09/06/17 21:00 10/06/17 20:59 09/08/17 21:13 Ibuprofen (Advil) 600 mg Q8H PRN ORAL Headache 09/06/17 15:45 10/06/17 15:44 Morphine Sulfate (Morphine Sulfate) 4 mg Q2H PRN IVP Severe Pain (Pain Scale 7-10) 09/06/17 23:45 09/13/17 23:44 09/09/17 00:40 Nitroglycerin (Ntg) 0.4 mg Q5MIN X 3 DOSES PRN SL Prn Chest Pain 09/06/17 16:00 10/06/17 15:59 Ondansetron HCl (Zofran) 4 mg Q6H PRN IVP Nausea & Vomiting 09/06/17 15:45 10/06/17 15:44 09/06/17 17:47 Oxycodone/ Acetaminophen (Percocet 10/325) 1 tab Q4H PRN ORAL Moderate Pain (Pain Scale 4-6) 09/06/17 15:45 09/13/17 15:44 09/08/17 20:27 Polyethylene Glycol (Miralax) 17 gm DAILYPRN PRN ORAL Constipation 09/06/17 15:45 10/06/17 15:44 Temazepam (Restoril) 15 mg HSPRN PRN ORAL Insomnia 09/06/17 21:00 09/13/17 20:59 Vancomycin HCl 1 gm/Dextrose 275 ml @ 183.3 mls/ hr Q8HR IVPB 09/06/17 22:00 09/11/17 21:59 09/09/17 05:35 Moises (Sarah)Cristina NP Sep 09, 2017 08:08
[2017-09-09] MEDS: Heparin 5000 units/ml inj SUBQ SCH (08:14)
[2017-09-09 12:00] VITALS: BP 122/73
--- NOTE | 2017-09-09 13:34 | General Progress Note ---
Assessment/Plan Problem List: (1) Cellulitis ICD Codes: L03.90 - Cellulitis, unspecified SNOMED: 283181066 (2) Nasal abscess ICD Codes: J34.0 - Abscess, furuncle and carbuncle of nose SNOMED: 5573970 Assessment/Plan abx ent plastic f/u dc if clear Subjective Constitutional: Reports: weakness Allergies: Coded Allergies: No Known Allergies (Unverified , 07/23/17) All Systems: reviewed and negative except above Subjective sl nasal pain Objective Last 24 Hour Vital Signs Date Time Temp Pulse Resp B/P (MAP) Pulse Ox O2 Delivery O2 Flow Rate FiO2 09/09/17 08:00 97.7 82 20 89/69 99 09/09/17 04:00 97.6 64 19 120/88 99 Room Air 09/09/17 04:00 99 Room Air 09/09/17 00:19 98 Room Air 09/09/17 00:19 97.7 60 18 110/68 98 Room Air 09/08/17 20:00 99 Room Air 09/08/17 20:00 97.9 67 18 113/64 99 Room Air 09/08/17 18:21 98.2 73 19 114/75 Room Air 09/08/17 16:45 98.2 73 19 114/75 Room Air Intake and Output 09/08/17 09/09/17 19:00 07:00 Intake Total 1479.9 ml Balance 1479.9 ml Intake Oral 930 ml IV Total 549.9 ml # Voids 5 1 Laboratory Tests 09/09/17 06:20: White Blood Count 7.0, Red Blood Count 4.43L, Hemoglobin 13.7L, Hematocrit 38.4L , Mean Corpuscular Volume 87, Mean Corpuscular Hemoglobin 31.0, Mean Corpuscular Hemoglobin Concent 35.7, Red Cell Distribution Width 10.7L, Platelet Count 236, Mean Platelet Volume 7.1, Neutrophils (%) (Auto) 52.3, Lymphocytes (%) (Auto) 34.5, Monocytes (%) (Auto) 8.8, Eosinophils (%) (Auto) 3.4H, Basophils (%) (Auto) 1.0, Sodium Level 139, Potassium Level 4.3, Chloride Level 106, Carbon Dioxide Level 29, Anion Gap 5, Blood Urea Nitrogen 11, Creatinine 0.9, Estimat Glomerular Filtration Rate > 60, Glucose Level 110H, Hemoglobin A1c 5.8, Calcium Level 8.8 Height (Feet): 6 Height (Inches): 1.00 Weight (Pounds): 190 General Appearance: alert EENT: normal ENT inspection Neck: normal alignment Cardiovascular: normal peripheral pulses, normal rate, regular rhythm Respiratory/Chest: chest wall non-tender, lungs clear, normal breath sounds Abdomen: normal bowel sounds, non tender, soft Extremities: normal inspection Edema: no edema noted Arm (L), no edema noted Arm (R), no edema noted Leg (L), no edema noted Leg (R), no edema noted Pedal (L), no edema noted Pedal (R), no edema noted Generalized Neurologic: responsive, motor weakness Skin: normal pigmentation, warm/dry Objective sl nasal tip septum redness and swelling CAROLYNN BENSON Sep 09, 2017 13:34
--- NOTE | 2017-09-09 13:37 | Infectious Diseases Prog Note ---
Assessment/Plan Assessment/Plan A; Nasal abscess with MSSA Facial cellulitis P; Can be discharged with PO Keflex X 7 days Subjective ROS Limited/Unobtainable: No Constitutional: Reports: no symptoms HEENT: Reports: other - nasal pain imroving Respiratory: Reports: no symptoms Gastrointestinal/Abdominal: Reports: no symptoms Allergies: Coded Allergies: No Known Allergies (Unverified , 07/23/17) Objective Vital Signs Last 24 Hour Vital Signs Date Time Temp Pulse Resp B/P (MAP) Pulse Ox O2 Delivery O2 Flow Rate FiO2 09/09/17 08:00 97.7 82 20 89/69 99 09/09/17 04:00 97.6 64 19 120/88 99 Room Air 09/09/17 04:00 99 Room Air 09/09/17 00:19 98 Room Air 09/09/17 00:19 97.7 60 18 110/68 98 Room Air 09/08/17 20:00 99 Room Air 09/08/17 20:00 97.9 67 18 113/64 99 Room Air 09/08/17 18:21 98.2 73 19 114/75 Room Air 09/08/17 16:45 98.2 73 19 114/75 Room Air Height (Feet): 6 Height (Inches): 1.00 Weight (Pounds): 190 General Appearance: no acute distress HEENT: mucous membranes moist, other - nasal base eythema, no discharge Respiratory/Chest: normal breath sounds Cardiovascular: normal rate Abdomen: soft, non tender Extremities: no edema Neurologic/Psychiatric: alert, oriented x 3, responsive Microbiology Date/Time Source Procedure Growth Status 09/07/17 11:10 Nose Gram Stain Pending Resulted 09/07/17 11:10 Wound Culture - Preliminary Staphylococcus Aureus Resulted Laboratory Tests Test 09/09/17 06:20 White Blood Count 7.0 K/UL (4.8-10.8) Red Blood Count 4.43 M/UL (4.70-6.10) L Hemoglobin 13.7 G/DL (14.2-18.0) L Hematocrit 38.4 % (42.0-52.0) L Mean Corpuscular Volume 87 FL (80-99) Mean Corpuscular Hemoglobin 31.0 PG (27.0-31.0) Mean Corpuscular Hemoglobin Concent 35.7 G/DL (32.0-36.0) Red Cell Distribution Width 10.7 % (11.6-14.8) L Platelet Count 236 K/UL (150-450) Mean Platelet Volume 7.1 FL (6.5-10.1) Neutrophils (%) (Auto) 52.3 % (45.0-75.0) Lymphocytes (%) (Auto) 34.5 % (20.0-45.0) Monocytes (%) (Auto) 8.8 % (1.0-10.0) Eosinophils (%) (Auto) 3.4 % (0.0-3.0) H Basophils (%) (Auto) 1.0 % (0.0-2.0) Sodium Level 139 MMOL/L (136-145) Potassium Level 4.3 MMOL/L (3.5-5.1) Chloride Level 106 MMOL/L (98-107) Carbon Dioxide Level 29 MMOL/L (21-32) Anion Gap 5 mmol/L (5-15) Blood Urea Nitrogen 11 mg/dL (7-18) Creatinine 0.9 MG/DL (0.55-1.30) Estimat Glomerular Filtration Rate > 60 mL/min (>60) Glucose Level 110 MG/DL (74-106) H Hemoglobin A1c 5.8 % (4.3-6.0) Calcium Level 8.8 MG/DL (8.5-10.1) Current Medications Medications (Trade) Dose Ordered Sig/Sagar Route PRN Reason Start Time Stop Time Status Last Admin Dose Admin Acetaminophen (Tylenol) 650 mg Q4H PRN ORAL T>100.5 09/06/17 15:45 10/06/17 15:44 Albuterol/ Ipratropium (Albuterol/ Ipratropium) 3 ml Q4H PRN HHN Shortness of Breath 09/06/17 15:45 09/11/17 15:44 Dextrose (Dextrose 50%) STAT PRN IV Hypoglycemia 09/06/17 15:45 10/06/17 15:44 Heparin Sodium (Porcine) (Heparin 5000 units/ml) 5,000 units EVERY 12 HOURS SUBQ 09/06/17 21:00 10/06/17 20:59 09/08/17 21:13 Ibuprofen (Advil) 600 mg Q8H PRN ORAL Headache 09/06/17 15:45 10/06/17 15:44 Morphine Sulfate (Morphine Sulfate) 4 mg Q2H PRN IVP Severe Pain (Pain Scale 7-10) 09/06/17 23:45 09/13/17 23:44 09/09/17 00:40 Nitroglycerin (Ntg) 0.4 mg Q5MIN X 3 DOSES PRN SL Prn Chest Pain 09/06/17 16:00 10/06/17 15:59 Ondansetron HCl (Zofran) 4 mg Q6H PRN IVP Nausea & Vomiting 09/06/17 15:45 10/06/17 15:44 09/06/17 17:47 Oxycodone/ Acetaminophen (Percocet 10/325) 1 tab Q4H PRN ORAL Moderate Pain (Pain Scale 4-6) 09/06/17 15:45 09/13/17 15:44 09/09/17 08:14 Polyethylene Glycol (Miralax) 17 gm DAILYPRN PRN ORAL Constipation 09/06/17 15:45 10/06/17 15:44 Temazepam (Restoril) 15 mg HSPRN PRN ORAL Insomnia 09/06/17 21:00 09/13/17 20:59 Vancomycin HCl 1 gm/Dextrose 275 ml @ 183.3 mls/ hr Q8HR IVPB 09/06/17 22:00 09/11/17 21:59 09/09/17 05:35 DAMIEN POTTER Sep 09, 2017 13:37
[2017-09-09] MEDS ORDERED: NS 275ml ONE (15:52)
[2017-09-09 16:00] VITALS: BP 118/72
--- NOTE | 2017-09-10 10:21 | Discharge Summary ---
Discharge Summary Hospital Course Date of Admission Sep 06, 2017 at 05:33 Date of Discharge Sep 09, 2017 at 17:00 Admitting Diagnosis nasal abscess KOKO Hathaway is a 41 year old male who was admitted on Sep 06, 2017 at 05:33 for Nasal Abscess Hospital Course [id number] Discharge Discharge Disposition Patient was discharged to Home (01) Discharge Diagnoses: Alma Rosa Mahajan NP Sep 10, 2017 10:21
--- NOTE | 2017-09-10 23:00 | Discharge Summary 2 SIG ---
DATE OF ADMISSION: 09/06/2017 DATE OF DISCHARGE: 09/09/2017 CONSULTANTS: 1. Taylor Lubin M.D. 2. Wu Bacon M.D. 3. Alee Bourne M.D. BRIEF HOSPITAL COURSE: The patient is a 41-year-old male who lives at home for a week prior to admission had a pinpoint lesion on the middle nose. It was diagnosed with an abscess and was given Bactrim and ibuprofen. Swelling continued to worsen and pain was severe. On evaluation at the ED, blood work showed elevated WBC to 11. Maxillofacial CT showed cellulitis and 1 cm abscess on the soft tissues anterior to the superior alveolar ridge. He was planned transfer to higher level of care with ENT specialty; however, unable to be placed. He was then admitted for nasal abscess. At the ER in an attempt to do aspiration with an 18-gauge needle was done. There was minimal drainage. He was then admitted for inpatient care. He was seen by Dr. Bourne. Because of the symptoms, he had difficulty swallowing and eating. He was started on IV vancomycin. Abscess continued to auto drain. He was advised warm facial soak four times per day. He was given wound care. Venous duplex of lower extremity was negative for DVT. Wound culture showed growth of Staphylococcus aureus. He was eventually cleared for discharge home to continue p.o. Keflex for seven days. FINAL DIAGNOSES: 1. Nasal abscess with methicillin-sensitive Staphylococcus aureus. 2. Facial cellulitis. DISPOSITION: The patient was discharged home. DISCHARGE MEDICATIONS: Refer to medication list. DISCHARGE INSTRUCTIONS: Continue with warm facial soak q.i.d. and follow up with PCP in a week. Carson Berman D.O. I have been assigned to dictate discharge summary on this account and I was not involved in the patient's management. Alma Rosa Mahajan N.P. DR: JOYCE JOB#: [id number] CC: DENICE
--- NOTE | 2017-09-15 22:07 | Diagnostic Imaging Report ---
APPROVED REPORT CPT Code: 98812 Present Symptoms Comments: R/O DVT BILATERAL: Imaging reveals a patent deep venous system bilaterally. There is no evidence of thrombus within the femoral, popliteal or tibial segments. The greater saphenous veins are also within normal limits. Doppler indicates normal spontaneous flow within these segments.
== END 2017-09-09 17:00 | disposition home or self-care (01) | DRG 113 ==
LOC: EMR 04:20 → 4E 05:33 → EDBEDREQ 05:38 → EDBEDREQTM 15:02 → EDBEDREQ 15:48 → 4E 18:07
DX: J32.9 Chronic sinusitis, unspecified (principal); L03.211 Cellulitis of face; B95.61 Methicillin susceptible Staphylococcus aureus infection as the cause of diseases classified elsewhere
CPT/HCPCS: 36415; 70487; 80048; 80053; 80202; 82248; 83036; 83605; 83735; 84100; 85025; 87070; 87181; 87205; 93970; 99285; J2405

== ENCOUNTER 2018-08-03 19:14 | Emergency (ER) | payer MEDICAID ==
[~2018-08-03] VITALS: Ht 180.3 cm; Wt 83.9 kg
[2018-08-03 19:39] VITALS: BP 124/86
--- NOTE | 2018-08-03 19:39 | NUR ---
ED Nurse Note: Pt walked in and c/o back and both legs pain since 4 days ago. Pt is AO x 4times, VSS, on room air no distress, ERMD seen Pt at bedside.
[2018-08-03] MEDS ORDERED: Ketorolac 30mg Inj IM ONE (21:30)
[2018-08-03] MEDS ORDERED: Methocarbamol 750mg tab ORAL ONE (21:30)
[2018-08-03] MEDS ORDERED: LIDODERM700 M1 TOPIC (21:45)
[2018-08-03] MEDS ORDERED: ROBAXIN-750750 MG PO (21:45)
[2018-08-03] MEDS ORDERED: IBUPROFEN600 MG ORAL (21:45)
[2018-08-03 22:05] VITALS: BP 134/84
--- NOTE | 2018-08-03 22:05 | NUR ---
ED Nurse Note: Pt cleared DC by THEE. Pt is AO x 4times, VSS, on room air no distress. DC and Meds instructions given to Pt, Pt understood well. Belongings given to Pt. ID bend removed. Pt walked out unit with steady gait.
--- NOTE | 2018-08-04 00:38 | Emergency Room Report ---
History of Present Illness General Chief Complaint: Back Pain-No Injury Source: Patient Present Illness HPI 42-year-old male presents ED for evaluation. Complaining of lower back pain 2 days. Throbbing, 10 out of 10, radiating down both legs. Denies any recent injury. Denies any bowel or bladder incontinence. Denies any leg weakness. No other aggravating relieving factors. Denies any other associated symptoms Allergies: Coded Allergies: No Known Allergies (Unverified , 07/23/17) Patient History Past Medical History: none Past Surgical History: none Pertinent Family History: none Social History: Denies: smoking, alcohol use, drug use Immunizations: UTD Reviewed Nursing Documentation: PMH: Agreed; PSxH: Agreed Nursing Documentation-PMH Past Medical History: No Stated History Hx Cardiac Problems: No Hx Cancer: No Hx Gastrointestinal Problems: No Hx Neurological Problems: No Review of Systems All Other Systems: negative except mentioned in HPI Physical Exam Vital Signs Date Time Temp Pulse Resp B/P (MAP) Pulse Ox O2 Delivery O2 Flow Rate FiO2 08/03/18 19:24 97.7 76 15 114/76 95 Room Air Sp02 EP Interpretation: reviewed, normal General Appearance: no apparent distress, alert, GCS 15, non-toxic Head: normocephalic, atraumatic Eyes: bilateral eye normal inspection, bilateral eye PERRL ENT: hearing grossly normal, normal pharynx, no angioedema, normal voice Neck: full range of motion, supple/symm/no masses Respiratory: chest non-tender, lungs clear, normal breath sounds, speaking full sentences Cardiovascular #1: regular rate, rhythm, no edema Cardiovascular #2: 2+ carotid (R), 2+ carotid (L), 2+ radial (R), 2+ radial (L) , 2+ dorsalis pedis (R), 2+ dorsalis pedis (L) Gastrointestinal: normal bowel sounds, non tender, soft, non-distended, no guarding, no rebound Rectal: deferred Genitourinary: normal inspection, no CVA tenderness Musculoskeletal: gait/station normal, normal range of motion, other - paraspinal lumbar tenderness Neurologic: alert, oriented x3, responsive, motor strength/tone normal, sensory intact, speech normal Psychiatric: judgement/insight normal, memory normal, mood/affect normal, no suicidal/homicidal ideation Reflexes: 3+ bicep (R), 3+ bicep (L), 3+ tricep (R), 3+ tricep (L), 3+ knee (R) , 3+ knee (L) Skin: normal color, no rash, warm/dry, well hydrated Lymphatic: no adenopathy Medical Decision Making Diagnostic Impression: Primary Impression: Back pain Qualified Codes: M54.5 - Low back pain ER Course Hospital Course 42-year-old male presents ED complaining of lower back pain. No evidence of trauma Differential diagnoses include: pyelonephritis, kidney stone, muscle strain, Lspine fracture Clinical course Patient placed on stretcher. After initial history, physical exam reveals male in no acute distress. There is no vertebral body tenderness. There is some paraspinal lumbar tenderness. 5 out of 5 motor strength in lower extremities. No sensory deficit. Pain is likely muscular. No signs of injury. Imaging not required. Patient given toradol, Robaxin, Lidoderm patch here with pain improved. We will discharged to home with similar medications. Patient states he has a PMD Diagnosis - back pain Stable and discharged to home with prescription for motrin, robaxin, lidoderm. Followup with PMD. Return to ED if symptoms recur or worsen Last Vital Signs Date Time Temp Pulse Resp B/P (MAP) Pulse Ox O2 Delivery O2 Flow Rate FiO2 08/03/18 19:24 97.7 76 15 114/76 95 Room Air Status: improved Disposition: HOME, SELF-CARE Condition: Stable Scripts Lidocaine (Lidoderm) 1 Each Adh..patch 1 PATCH TOPIC DAILY, #7 PATCH 0 Refills Patch(es) may remain in place for up to 12 hours in any 24-hour period. Prov: Tuan Burton MD 08/03/18 Methocarbamol* (ROBAXIN-750*) 750 Mg Tablet 750 MG PO TID, #21 TAB 0 Refills Prov: Tuan Burton MD 08/03/18 Ibuprofen* (MOTRIN*) 600 Mg Tablet 600 MG ORAL Q8H PRN for For Pain, #30 TAB 0 Refills Prov: Tuan Burton MD 08/03/18 Referrals: NON PHYSICIAN (PCP) Patient Instructions: Back Pain, Adult Tuan Burton MD Aug 04, 2018 00:38
== END 2018-08-03 22:05 | disposition home or self-care (01) ==
LOC: EMR 19:55
DX: M54.5 Low back pain (principal)
CPT/HCPCS: 82962; 96372; 99283; J1885

== ENCOUNTER 2019-03-19 09:43 | Emergency (ER) | payer MEDICAID ==
[~2019-03-19] VITALS: Ht 180.3 cm; Wt 81.6 kg
[~2019-03-19 09:43] MED LIST changes: +LIDODERM700 M1 TOPIC; +ROBAXIN-750750 MG PO
[2019-03-19 09:53] VITALS: BP 107/71
--- NOTE | 2019-03-19 10:00 | NUR ---
ED Nurse Note: Patient walked into ED c/o generalized body aches for 1 day. patient's temp upon triage was 97.6F oral. patient is alert awake x4 ambulatory steady gait, breathing unlabored and even.
[2019-03-19] MEDS ORDERED: NAPROXEN250 MG ORAL (10:07)
[2019-03-19] MEDS ORDERED: ACETAMINOPHEN325 M1 ORAL (10:07)
--- NOTE | 2019-03-19 10:07 | Emergency Room Report ---
History of Present Illness General Chief Complaint: General Complaint Source: Patient Present Illness HPI 43-year-old male, no past medical history no surgical history presents with diffuse body aches fever/sweats x1 day no aggravating or alleviating factors he endorses achy pain severity is mild, constant no chest pain no shortness of breath patient presents for evaluation Allergies: Coded Allergies: No Known Allergies (Unverified , 07/23/17) Patient History Past Medical History: see triage record Reviewed Nursing Documentation: PMH: Agreed; PSxH: Agreed Nursing Documentation-PMH Past Medical History: No Stated History Hx Cardiac Problems: No Hx Cancer: No Hx Gastrointestinal Problems: No Hx Neurological Problems: No Review of Systems Constitutional: Reports: chills, sweats, fever, malaise Eye: Denies: blurred vision, double vision ENT: Denies: throat pain, nasal discharge Respiratory: Denies: cough, shortness of breath Cardiovascular: Denies: chest pain, palpitations Gastrointestinal: Denies: abdominal pain, diarrhea, nausea, vomiting Genitourinary: Denies: dysuria, pain Musculoskeletal: Reports: muscle pain; Denies: back pain Skin: Denies: rash, lesions Neurological: Denies: headache, focal weakness Hematologic/Lymphatic: Denies: easy bleeding, easy bruising All Other Systems: negative except mentioned in HPI Physical Exam Vital Signs Date Time Temp Pulse Resp B/P (MAP) Pulse Ox O2 Delivery O2 Flow Rate FiO2 03/19/19 09:53 97.5 66 18 107/71 (83) 100 Room Air Sp02 EP Interpretation: reviewed, normal General Appearance: well appearing, no apparent distress, alert Head: normocephalic, atraumatic Eyes: bilateral eye PERRL, bilateral eye EOMI ENT: uvula midline, moist mucus membranes Neck: supple, thyroid normal, supple/symm/no masses Respiratory: lungs clear, no respiratory distress, no retraction, no accessory muscle use Cardiovascular #1: normal peripheral pulses, regular rate, rhythm, no edema, no gallop, no murmur Gastrointestinal: non tender, soft, no guarding, no rebound Musculoskeletal: normal inspection Neurologic: alert, oriented x3 Psychiatric: mood/affect normal Skin: no rash, warm/dry Medical Decision Making Diagnostic Impression: Primary Impression: Viral syndrome ER Course 43-year-old male presents most likely with a viral syndrome. NegativeFLU Will provide patient with symptom [id number] disposition home with return precautions Last Vital Signs Date Time Temp Pulse Resp B/P (MAP) Pulse Ox O2 Delivery O2 Flow Rate FiO2 03/19/19 09:53 97.5 66 18 107/71 (83) 100 Room Air Disposition: HOME, SELF-CARE Condition: Stable Scripts Acetaminophen* (ACETAMINOPHEN 325MG TABLET*) 325 Mg Tablet 650 MG ORAL Q6H PRN for For Pain, #30 TAB Prov: Brendan Shelby MD 03/19/19 Naproxen* (NAPROSYN*) 250 Mg Tablet 250 MG ORAL BID, #20 TAB 0 Refills Prov: Brendan Shelby MD 03/19/19 [facility] Dep[facility] Forms: Return to Work Return to Work Date: Mar 22, 2019 Patient Instructions: Rehydration, Adult, Viral Respiratory Infection, Easy-To- Read Additional Instructions: The patient was provided with discharge instructions, notified to follow-up with a primary care doctor and or specialist in the next 24-48 hours, and to return to the ED if they have worsening of their symptoms. Please note that this report is being documented using [employer] technology. This can lead to erroneous entry secondary to incorrect interpretation by the dictating instrument. Brendan Shelby MD Mar 19, 2019 10:07
[2019-03-19] MEDS ORDERED: Acetaminophen 500mg (ES) tab ORAL ONE (10:15)
[2019-03-19 11:01] VITALS: BP 107/71
--- NOTE | 2019-03-19 11:01 | NUR ---
ER DISCHARGE NOTE: Patient is cleared to be discharged per ERMD DR CRUZ, pt is aox4, on room air, with stable vital signs. pt was given dc and prescription instructions, pt was able to verbalize understanding, pt id band removed without complications. pt is able to ambulate with steady gait. pt took all belongings.
== END 2019-03-19 11:01 | disposition home or self-care (01) ==
LOC: EMR 10:00
DX: B34.9 Viral infection, unspecified (principal)
CPT/HCPCS: 86710; 99282